=== PATIENT | male | born 1950 | race African-American/Black ===

== ENCOUNTER 2022-04-07 23:41 | Inpatient (IN) | payer OTHER, MEDICAID ==
[2022-04-08 00:16] LABS: #Monocytes 1.2 10x3/uL (0.0-1.1); #Neutrophils 8.9 10x3/uL (1.5-8.4); %Basophils 0.3 % (0.0-2.0); %Lymphocytes 5.1 % (18.0-47.0); %Monocytes 10.8 % (0.0-10.0); %Neutrophils 83.1 % (40.0-75.0); Hemoglobin 13.4 g/dL (13.5-17.5); Mean Corpuscular HGB CONC 34.9 g/dL (32.0-36.0); Mean Corpuscular Hemoglobin 30.5 pg (27.0-33.0); Mean Corpuscular Volume 87.3 fl (81.2-95.1); Mean Platelet Volume 8.4 fl (7.4-10.4); Platelet Count 322 10x3/uL (150-450); RBC Distribution Width 14.3 % (11.5-14.5); White Blood Cell (WBC) Count 10.7 10x3/uL (3.5-10.5)
[2022-04-08 00:36] LABS: ALT (SGPT) 16 U/L (8-55); AST (SGOT) 40 U/L (5-34); Albumin 3.7 g/dL (3.4-4.8); Alkaline Phosphatase 123 U/L (40-110); Anion Gap 16 mmol/L (10-20); BUN (Urea Nitrogen) 11 mg/dL (8.4-25.7); Bilirubin, Total 0.3 mg/dL (0.2-1.2); Calc. Creatinine Clearance 0 mL/min (70-130); Calcium 9.1 mg/dL (7.8-10.44); Carbon Dioxide 20 mmol/L (23-31); Chloride 97 mmol/L (98-107); Estimated GFR 56; Glucose 164 mg/dL (83-110); Protein, Total 7.7 g/dL (5.8-8.1); Sodium 131 mmol/L (136-145)
[2022-04-08 00:39] LABS: Potassium 2.4 mmol/L (3.5-5.1)
[2022-04-08] MEDS ORDERED: Potassium Chloride 20 MEQ TAB ONE ×4 (00:48→10:08)
[2022-04-08] MEDS ORDERED: cefTRIAXone\\ROCEPHIN 1 GM VIAL ONE (00:49)
[2022-04-08 01:01] LABS: CKMB 12.2 ng/mL (0-6.6)
[2022-04-08] MEDS ORDERED: Lorazepam 2 MG/ML VIAL ONE (02:30)
[2022-04-08 02:31] LABS: SARS-CoV-2 NAA Rapid Test DETECTED (NotDetected)
[2022-04-08 02:31] LABS: Bilirubin Neg (Negative); Blood, Urine 250 (Negative); Clarity Clear (Clear); Glucose, Urine (Dipstick) Normal (Negative); Ketone, Urine Negative (Negative); Leukocyte Negative (Negative); Nitrite Negative (Negative); Protein, Urine (Dipstick) 15 mg/dl (Neg-Trace); Specific Gravity, Urine 1.005 (1.002-1.036); Urobilinogen Normal mg/dL (Less than 2)
[2022-04-08 02:40] LABS: Bacteria/HPF None Seen HPF (None Seen); Mucous/LPF None Seen LPF (<2+); RBC/HPF 0-3 HPF (0-3); Squamous Epithelial 0-3 HPF (0-3); WBC/HPF 0-3 HPF (0-3)
[2022-04-08] MEDS ORDERED: Aspirin 325 MG TAB ONE (02:50)
[2022-04-08] MEDS ORDERED: HYDROcodone/Acetaminophen 5/325 mg Tablet PO PRN (02:57)
[2022-04-08] MEDS ORDERED: Calcium Carbonate 500 MG ChewTAB PO PRN (02:57)
[2022-04-08] MEDS ORDERED: Senokot S 8.6-50 MG TAB PO PRN (02:57)
[2022-04-08] MEDS ORDERED: Ondansetron PF 4 MG/2 ML Vial IVP PRN (02:57)
[2022-04-08] MEDS ORDERED: Guaifenesin DM 100-10/5 ML UDCUP PO PRN (02:57)
[2022-04-08] MEDS ORDERED: NS 0.9% w/ 40 MEQ KCL 1,000 ML IV SCH (03:00)
[2022-04-08] MEDS ORDERED: Potassium Chloride 20 MEQ TAB PO SCH ×2 (03:15→15:00)
[2022-04-08 03:21] LABS: Lactic Acid 2.4 mmol/L (0.5-2.2)
[2022-04-08] MEDS ORDERED: NS 0.9% w/ 40 MEQ KCL 1,000 ML IV ONE (03:33)
[2022-04-08 03:49] LABS: #Monocytes 1.3 10x3/uL (0.0-1.1); #Neutrophils 7.6 10x3/uL (1.5-8.4); %Basophils 0.2 % (0.0-2.0); %Lymphocytes 10.3 % (18.0-47.0); %Monocytes 12.6 % (0.0-10.0); %Neutrophils 76.3 % (40.0-75.0); Hemoglobin 12.4 g/dL (13.5-17.5); Mean Corpuscular HGB CONC 34.6 g/dL (32.0-36.0); Mean Corpuscular Hemoglobin 30.4 pg (27.0-33.0); Mean Corpuscular Volume 87.7 fl (81.2-95.1); Mean Platelet Volume 8.5 fl (7.4-10.4); Platelet Count 288 10x3/uL (150-450); RBC Distribution Width 14.7 % (11.5-14.5); Red Blood Cell (RBC) Count 4.08 10x6/uL (4.32-5.72)
[2022-04-08 04:04] LABS: ALT (SGPT) 19 U/L (8-55); AST (SGOT) 64 U/L (5-34); Albumin 3.1 g/dL (3.4-4.8); Alkaline Phosphatase 105 U/L (40-110); Anion Gap 16 mmol/L (10-20); BUN (Urea Nitrogen) 10 mg/dL (8.4-25.7); Bilirubin, Total 0.2 mg/dL (0.2-1.2); CK (CPK) 3994 U/L (30-200); Calc. Creatinine Clearance 0 mL/min (70-130); Calcium 8.1 mg/dL (7.8-10.44); Carbon Dioxide 20 mmol/L (23-31); Chloride 100 mmol/L (98-107); Estimated GFR 63; Globulin 3.6 g/dL (2.4-3.5); Glucose 138 mg/dL (83-110); Magnesium 1.8 mg/dL (1.6-2.6); Protein, Total 6.7 g/dL (5.8-8.1); Sodium 133 mmol/L (136-145)
[2022-04-08 04:12] LABS: Potassium 2.8 mmol/L (3.5-5.1)
[2022-04-08 04:33] LABS: CKMB 23.7 ng/mL (0-6.6)
[2022-04-08] MEDS ORDERED: Potassium Chloride 40 MEQ in Premix Bag 1 BAG IVPB SCH (08:00)
[2022-04-08] MEDS ORDERED: Iopamidol 370 76% 100 ML VIAL ONE (08:00)
[2022-04-08] MEDS ORDERED: Aspirin Chewable 81 MG TAB ONE (09:32)
[2022-04-08] MEDS ORDERED: Metoprolol Tartrate 50 MG TAB ONE (09:34)
[2022-04-08] MEDS ORDERED: Benzonatate 100 MG CAP ONE (09:34)
[2022-04-08] MEDS ORDERED: Enoxaparin Sodium 40 MG/0.4 ML SYRINGE ONE (09:35)
[2022-04-08] MEDS: Benzonatate 100 MG CAP PO SCH ×3 (09:45→21:53)
[2022-04-08] MEDS: Enoxaparin Sodium 40 MG/0.4 ML SYRINGE SC SCH (09:45)
[2022-04-08] MEDS: Sodium Chloride 0.9% 1,000 ML IV SCH ×2 (09:45→17:14)
[2022-04-08] MEDS: Aspirin 81 mg Enteric Coated Tablet PO SCH (09:45)
[2022-04-08] MEDS: Metoprolol Tartrate 50 MG TAB PO SCH ×2 (09:46→21:53)
[2022-04-08 09:48] LABS: Anion Gap 16 mmol/L (10-20); BUN (Urea Nitrogen) 10 mg/dL (8.4-25.7); Calc. Creatinine Clearance 0 mL/min (70-130); Calcium 8.3 mg/dL (7.8-10.44); Carbon Dioxide 22 mmol/L (23-31); Chloride 100 mmol/L (98-107); Estimated GFR 65; Glucose 112 mg/dL (83-110); Sodium 135 mmol/L (136-145)
[2022-04-08 09:56] LABS: Potassium 2.9 mmol/L (3.5-5.1)
[2022-04-08 09:58] LABS: CKMB 26.2 ng/mL (0-6.6)
[2022-04-08] MEDS: OLANZapine 5 MG TAB PO SCH (11:27)
[2022-04-08] MEDS: Allopurinol 100 MG TAB PO SCH (11:27)
[2022-04-08] MEDS: Topiramate 100 MG TAB PO SCH (13:51)
[2022-04-08] MEDS: Benztropine 1 MG TAB PO SCH ×2 (13:51→21:53)
[2022-04-08] MEDS: Acetaminophen 325 MG TAB PO PRN (17:12)
[2022-04-08] MEDS: Ventolin HFA Inhaler 60 PUFF INHALER INH SCH (20:20)
[2022-04-08] MEDS: Mometasone/Formoterol 200/5 60 PUFF INH SCH (20:31)
[2022-04-08 20:42] LABS: Anion Gap 12 mmol/L (10-20); BUN (Urea Nitrogen) 9 mg/dL (8.4-25.7); Calc. Creatinine Clearance 122 mL/min (70-130); Calcium 8.1 mg/dL (7.8-10.44); Carbon Dioxide 24 mmol/L (23-31); Chloride 103 mmol/L (98-107); Estimated GFR 67; Glucose 128 mg/dL (83-110); Potassium 3.4 mmol/L (3.5-5.1); Sodium 136 mmol/L (136-145)
[2022-04-09] MEDS ORDERED: OLANZapine 5 MG TAB PO SCH ×2 (00:45→01:00)
[2022-04-09] MEDS: Ventolin HFA Inhaler 60 PUFF INHALER INH SCH ×5 (02:00→19:20)
[2022-04-09 05:47] LABS: Hemoglobin 11.7 g/dL (13.5-17.5); Mean Corpuscular HGB CONC 34.4 g/dL (32.0-36.0); Mean Corpuscular Hemoglobin 30.5 pg (27.0-33.0); Mean Corpuscular Volume 88.8 fl (81.2-95.1); Mean Platelet Volume 8.8 fl (7.4-10.4); Platelet Count 259 10x3/uL (150-450); RBC Distribution Width 15.3 % (11.5-14.5); Red Blood Cell (RBC) Count 3.83 10x6/uL (4.32-5.72); White Blood Cell (WBC) Count 7.3 10x3/uL (3.5-10.5)
[2022-04-09 05:49] LABS: Anion Gap 13 mmol/L (10-20); BUN (Urea Nitrogen) 7 mg/dL (8.4-25.7); CRP (Inflammatory) 4.43 mg/dL (= or < 0.5); Calc. Creatinine Clearance 106 mL/min (70-130); Calcium 7.7 mg/dL (7.8-10.44); Carbon Dioxide 22 mmol/L (23-31); Cardiac Risk 3.1 (Less than 4.5); Chloride 104 mmol/L (98-107); Cholesterol 95 mg/dl (< 200 Desired); Estimated GFR 78; Glucose 104 mg/dL (83-110); HDL Cholesterol 31 mg/dL (>60 Neg Risk); LDL Cholesterol, Calculated 49 mg/dL; Magnesium 1.8 mg/dL (1.6-2.6); Sodium 136 mmol/L (136-145); Triglycerides 74 mg/dL (Less than 150)
[2022-04-09 05:55] LABS: Potassium 2.9 mmol/L (3.5-5.1)
[2022-04-09 06:13] LABS: CK (CPK) 11143 U/L (30-200)
[2022-04-09] MEDS ORDERED: Potassium Chloride 20 MEQ TAB PO SCH ×3 (06:30→17:00)
[2022-04-09 06:33] LABS: Anisocytosis SLIGHT = 6-15 cells (100X) (0-5/hpf); MDiff Complete? YES
[2022-04-09 06:34] LABS: Platelet Morphology Comment Appears Adequate
[2022-04-09 06:37] LABS: Band 5 % (5-11); Lymphocytes 18 % (21-51); Monocytes 13 % (0-10); Neutrophil 63 % (42-75); Reactive Lymphocytes 1 % (0-10)
[2022-04-09] MEDS ORDERED: Potassium Chloride 40 MEQ in Premix Bag 1 BAG IVPB SCH (06:45)
[2022-04-09] MEDS: Mometasone/Formoterol 200/5 60 PUFF INH SCH ×3 (06:51→19:20)
[2022-04-09] MEDS ORDERED: Magnesium 2 GM/50 ML(in water) 4 GM in Premix Bag 1 BAG IVPB SCH (07:30)
[2022-04-09] MEDS: Potassium Chloride 20 MEQ in Premix Bag 1 BAG IVPB SCH ×2 (08:05→10:21)
[2022-04-09] MEDS: Sodium Chloride 0.9% 1,000 ML IV SCH ×3 (08:06→21:10)
[2022-04-09] MEDS: Allopurinol 100 MG TAB PO SCH (09:05)
[2022-04-09] MEDS: Topiramate 100 MG TAB PO SCH (09:05)
[2022-04-09] MEDS: Aspirin 81 mg Enteric Coated Tablet PO SCH (09:05)
[2022-04-09] MEDS: Metoprolol Tartrate 50 MG TAB PO SCH ×2 (09:05→21:11)
[2022-04-09] MEDS: Enoxaparin Sodium 40 MG/0.4 ML SYRINGE SC SCH (09:05)
[2022-04-09] MEDS: Benztropine 1 MG TAB PO SCH ×2 (09:06→21:12)
[2022-04-09] MEDS: Benzonatate 100 MG CAP PO SCH ×3 (09:06→21:10)
[2022-04-09] MEDS: OLANZapine 5 MG TAB PO SCH ×3 (09:06→21:10)
[2022-04-09] MEDS: Acetaminophen 325 MG TAB PO PRN (10:20)
[2022-04-09] MEDS: Magnesium 2 GM/50 ML(in water) 2 GM in Premix Bag 1 BAG IVPB SCH ×2 (12:19→15:23)
[2022-04-09 13:02] VITALS: BMI 32.3
[2022-04-09 18:10] LABS: Anion Gap 15 mmol/L (10-20); BUN (Urea Nitrogen) 4 mg/dL (8.4-25.7); Calc. Creatinine Clearance 106 mL/min (70-130); Calcium 8.1 mg/dL (7.8-10.44); Carbon Dioxide 16 mmol/L (23-31); Chloride 104 mmol/L (98-107); Estimated GFR 78; Glucose 171 mg/dL (83-110); Potassium 3.7 mmol/L (3.5-5.1); Sodium 131 mmol/L (136-145)
[2022-04-09 18:43] LABS: CK (CPK) 12401 U/L (30-200)
[2022-04-10] MEDS: Ventolin HFA Inhaler 60 PUFF INHALER INH SCH ×4 (02:10→20:24)
[2022-04-10] MEDS: Sodium Chloride 0.9% 1,000 ML IV SCH ×3 (03:05→19:36)
[2022-04-10 05:41] LABS: #Monocytes 0.8 10x3/uL (0.0-1.1); #Neutrophils 3.4 10x3/uL (1.5-8.4); %Basophils 0.3 % (0.0-2.0); %Eosinophils 0.5 % (0.0-6.0); %Lymphocytes 32.5 % (18.0-47.0); %Monocytes 12.4 % (0.0-10.0); %Neutrophils 53.8 % (40.0-75.0); Hemoglobin 11.8 g/dL (13.5-17.5); Mean Corpuscular HGB CONC 33.7 g/dL (32.0-36.0); Mean Corpuscular Hemoglobin 30.3 pg (27.0-33.0); Mean Corpuscular Volume 89.7 fl (81.2-95.1); Mean Platelet Volume 8.8 fl (7.4-10.4); Platelet Count 275 10x3/uL (150-450); RBC Distribution Width 15.8 % (11.5-14.5); White Blood Cell (WBC) Count 6.4 10x3/uL (3.5-10.5)
[2022-04-10 06:08] LABS: Anion Gap 11 mmol/L (10-20); BUN (Urea Nitrogen) 6 mg/dL (8.4-25.7); Calc. Creatinine Clearance 120 mL/min (70-130); Calcium 7.6 mg/dL (7.8-10.44); Carbon Dioxide 22 mmol/L (23-31); Chloride 108 mmol/L (98-107); Estimated GFR 90; Glucose 119 mg/dL (83-110); Magnesium 2.4 mg/dL (1.6-2.6); Potassium 3.2 mmol/L (3.5-5.1); Sodium 138 mmol/L (136-145)
[2022-04-10] MEDS: Mometasone/Formoterol 200/5 60 PUFF INH SCH ×2 (06:57→20:24)
[2022-04-10] MEDS: Allopurinol 100 MG TAB PO SCH (08:53)
[2022-04-10] MEDS: Enoxaparin Sodium 40 MG/0.4 ML SYRINGE SC SCH (08:53)
[2022-04-10] MEDS: Benztropine 1 MG TAB PO SCH ×2 (08:54→19:36)
[2022-04-10] MEDS: Topiramate 100 MG TAB PO SCH (08:54)
[2022-04-10] MEDS: Metoprolol Tartrate 50 MG TAB PO SCH ×2 (08:54→19:36)
[2022-04-10] MEDS: Benzonatate 100 MG CAP PO SCH ×3 (08:54→19:36)
[2022-04-10] MEDS: Aspirin 81 mg Enteric Coated Tablet PO SCH (08:54)
[2022-04-10] MEDS ORDERED: Potassium Chloride 20 MEQ TAB PO SCH (09:15)
[2022-04-10] MEDS: OLANZapine 5 MG TAB PO SCH (19:35)
[2022-04-10] MEDS: Acetaminophen 325 MG TAB PO PRN (21:55)
[2022-04-11] MEDS: Ventolin HFA Inhaler 60 PUFF INHALER INH SCH ×3 (01:15→13:34)
[2022-04-11 05:57] LABS: #Eosinphils 0.1 10x3/uL (0.0-0.5); #Monocytes 0.7 10x3/uL (0.0-1.1); #Neutrophils 3.9 10x3/uL (1.5-8.4); %Basophils 0.3 % (0.0-2.0); %Eosinophils 1.3 % (0.0-6.0); %Lymphocytes 32.7 % (18.0-47.0); %Monocytes 9.5 % (0.0-10.0); %Neutrophils 55.8 % (40.0-75.0); Anion Gap 13 mmol/L (10-20); BUN (Urea Nitrogen) 5 mg/dL (8.4-25.7); Calc. Creatinine Clearance 137 mL/min (70-130); Calcium 7.8 mg/dL (7.8-10.44); Carbon Dioxide 21 mmol/L (23-31); Chloride 107 mmol/L (98-107); Estimated GFR 95; Glucose 107 mg/dL (83-110); Mean Corpuscular HGB CONC 33.1 g/dL (32.0-36.0); Mean Corpuscular Volume 90.8 fl (81.2-95.1); Mean Platelet Volume 8.7 fl (7.4-10.4); Platelet Count 294 10x3/uL (150-450); Potassium 3.5 mmol/L (3.5-5.1); RBC Distribution Width 15.9 % (11.5-14.5); Sodium 137 mmol/L (136-145); White Blood Cell (WBC) Count 6.9 10x3/uL (3.5-10.5)
[2022-04-11] MEDS: Sodium Chloride 0.9% 1,000 ML IV SCH (06:05)
[2022-04-11 06:28] LABS: CK (CPK) 12783 U/L (30-200)
[2022-04-11] MEDS: Mometasone/Formoterol 200/5 60 PUFF INH SCH (06:59)
[2022-04-11] MEDS ORDERED: Sodium Chloride 0.9% 1,000 ML IV SCH (08:09)
[2022-04-11] MEDS: Enoxaparin Sodium 40 MG/0.4 ML SYRINGE SC SCH (08:26)
[2022-04-11] MEDS: Aspirin 81 mg Enteric Coated Tablet PO SCH (08:27)
[2022-04-11] MEDS: Metoprolol Tartrate 50 MG TAB PO SCH (08:27)
[2022-04-11] MEDS: Benzonatate 100 MG CAP PO SCH (08:27)
[2022-04-11] MEDS: Benztropine 1 MG TAB PO SCH (08:27)
[2022-04-11] MEDS: Allopurinol 100 MG TAB PO SCH (08:27)
[2022-04-11] MEDS: Topiramate 100 MG TAB PO SCH (08:27)
[2022-04-11 12:55] VITALS: BP 119/66; TEMP 98.1
== END 2022-04-11 16:16 | disposition home health service (06) | DRG 557 ==
LOC: CSHERS 23:41 → CSHERHOLD 04-08 03:03 → CSHTELE 04-08 10:26 → OBSVTOIN 04-10 17:05
PROVIDERS: ADMIT Student in an Organized Health Care Education/Training Program; ATTEND Internal Medicine
PROC: 8E0ZXY6 Isolation (ICD-10-PCS; principal; 2022-04-10)
DX: M62.82 Rhabdomyolysis (principal); U07.1 COVID-19; F20.0 Paranoid schizophrenia; N17.9 Acute kidney failure, unspecified; I10 Essential (primary) hypertension; K21.9 Gastro-esophageal reflux disease without esophagitis; M19.90 Unspecified osteoarthritis, unspecified site; J44.9 Chronic obstructive pulmonary disease, unspecified; E03.9 Hypothyroidism, unspecified; R53.81 Other malaise; E87.6 Hypokalemia; Z20.822 Contact with and (suspected) exposure to COVID-19; R77.8 Other specified abnormalities of plasma proteins; G43.909 Migraine, unspecified, not intractable, without status migrainosus; T42.8X5A Adverse effect of antiparkinsonism drugs and other central muscle-tone depressants, initial encounter; Z79.899 Other long term (current) drug therapy; Z87.891 Personal history of nicotine dependence
CPT/HCPCS: 36415; 71045; 71275; 72170; 80048; 80053; 80061; 81003; 81015; 82550; 82553; 83036; 83605; 83690; 83735; 83880; 84443; 84484; 85025; 85379; 86140; 87040; 87086; 93005; 93306; 94760; 96365; 96372; 96375; 96376; G0378; J0696; J1650; J2060; J3475; J3480; J7050; Q9967; U0002